=== PATIENT | male | born 1945 | race Caucasian/White ===

== ENCOUNTER 2024-05-16 19:47 | Emergency (ER) | payer MEDICARE, OTHER, SELFPAY ==
--- NOTE | ~2024-05-16 | CT_ITS ---
EXAMINATION: CT ANGIOGRAM CHEST CLINICAL INFORMATION: Shortness of breath. COMPARISON: None available. TECHNIQUE: Multiple axial images were obtained through the chest after the administration of 65 mL of Omnipaque 350 intravenous contrast. Extensive vascular post-processing including two-dimensional and three-dimensional reformatted images were created and reviewed on an independent workstation. This CT examination was performed using dose optimization techniques as appropriate, variously including the following: *Automated exposure control *Adjustment of mA and/or kV according to patient size (this includes techniques or standardized protocols for targeted exams where dose is matched to indication/reason for exam; i.e. extremities or head) *Use of iterative reconstruction technique DLP: 434 mGy-cm FINDINGS: QUALITY OF STUDY/CONTRAST BOLUS: Satisfactory. PULMONARY ARTERIES: There are filling defects within multiple right lower lobe pulmonary artery branches and one right upper lobe pulmonary artery branch. THORACIC AORTA: No aneurysm. LUNG: Bilateral lower lung field scarring. There is no evidence for active infiltrate. PLEURA: No pleural effusion or pneumothorax. MEDIASTINUM: Normal heart size. No pericardial effusion. No hilar or mediastinal lymphadenopathy. No evidence of septal bowing or right heart strain. CORONARY ARTERY CALCIFICATION: Mild. CHEST WALL/AXILLA: No axillary or internal mammary lymphadenopathy. OSSEOUS STRUCTURES: No acute or suspicious osseous abnormality. UPPER ABDOMEN: Unremarkable. No reflux of contrast into the hepatic veins to suggest elevated right heart pressures. CT/CT angio chest PE protocol IMPRESSION: 1. Small volume right sided pulmonary emboli. 2. No evidence for right heart strain. 3. No evidence for active infiltrate. VTE: positive. Fleischner guidelines were followed. Electronically signed by: Sid Hutchins MD 05/16/2024 11:19 PM EDT
--- NOTE | 2024-05-16 19:53 | ED_ITS ---
HPI - SOB/Dyspnea General Chief Complaint: Dyspnea Stated Complaint: SOB Time Seen by Provider: 05/16/24 20:17 Source: patient and family ( and daughter Montserrat who is an service technician copier here at [facility] [place]) Mode of arrival: ambulatory Limitations: no limitations History of Present Illness ED Provider: Dr. Isidro Almanzar HPI Narrative: 78-year-old male with a history of heart murmur, hypertension, hyperlipidemia, renal cell carcinoma diagnosed 03/04/2024 status post cryoablation 04/27/2024 and 05/03/2024 who presents emergency department for evaluation of dyspnea on exertion and shortness of breath. The patient states that her proximally 3 weeks prior he had flu-like symptoms what he describes as low-grade fevers, fatigue and diarrhea. He states that these symptoms have resolved but he was feeling fatigued, having dyspnea on exertion and feeling short of breath. Today, he was at a birthday green party for his 6-year-old granddaughter the patient's daughter who was a nurse practitioner is observing the patient while he was sitting and thought that he looked dyspneic she counted his respirations were 22 breaths per minute. Given his diagnosis of renal cell cancer, his daughter was concerned that the patient may have had a pulmonary embolism and strongly advised her father to come to the emergency department for evaluation. According to the patient's daughter, Montserrat, the patient was noted to have a decreased GFR by his PCP. His PCP got an outpatient ultrasound which revealed a 3.2 cm mass in his kidney. He then had MRI of the which was suspicious for renal cell carcinoma. Related Data Previous Rx's ?Medication ?Instructions ?Recorded apixaban 5 mg (74 tabs) tablets in 5 mg PO BID #74 ea 05/17/24 a dose pack (Eliquis DVT-PE Treat 30D Start) Allergies Allergy/AdvReac Type Severity Reaction Status Date / Time allopurinol Allergy Unknown Verified 05/16/24 19:58 Review of Systems 2 Review of Systems: Yes all other systems are reviewed and are negative [facility] Past Medical History [facility] Narrative: Social history: The patient denies tobacco use. He rarely drinks alcohol. Social History Social History Smoked in Last 30 Days: No Use of substances other than those prescribed or required for medical reasons: No Advance Directives: No Advance Directives Information Provided: No Physical Exam 2 Vital Signs: Vital Signs: Last Vital Signs Temp 97.5 F 05/16/24 22:47 Pulse 65 05/16/24 22:47 Resp 18 05/16/24 22:47 BP 141/57 H 05/16/24 22:47 Pulse Ox 94 05/16/24 22:47 O2 Del Method Room Air 05/16/24 22:47 BMI result Body Mass Index 32.8 Vital signs revealed an elevated blood pressure of 137/53 otherwise Exam: General: Awake, alert in no distress Head: Normocephalic, atraumatic EENT: PERRL, Lids normal, sclera normal, conjunctiva normal, nose normal , ears normal, throat without erythema or exudates Neck: Supple, no adenopathy Lung: breath sounds symmetric, no wheezing, rales or rhonchi Chest: symmetric movement, nontender Heart: Irregular irregular rate and rhythm, normal S1, S2 2/6 systolic murmurs left lower sternal border Abdomen: soft, non-tender, nondistended, normal bowel sounds Back: no vertebral tenderness, no CVAT Extremities: no deformities, moves all extremities symmetrically Neuro: Awake, alert, oriented, normal speech, cranial nerves intact, moves all extremities symmetrically Psych: Pleasant, cooperative Course Course Course Narrative: This is a Rapid Medical Exam performed in triage by Tegan Ojeda PA-C. Full HPI, ROS and PE to be performed by primary ED provider. 78 yo M w/PMHx renal CA, renal embolization 3 wks ago & cryo-ablation, presenting to the ED c/o low grade fever, SOB on exertion x few weeks. denies CP, LE swelling. denies taking AC. Received Flu & COVID shots last week PE: talking in complete sentences, ambulating w/steady gait. no pedal edema Plan: EKG, Labs, CXR, Viral testing Medications Administered Discontinued Medications Generic Name Dose Route Start Last Admin Trade Name Freq PRN Reason Stop Dose Admin Sodium Chloride 1,000 mls @ 999 mls/hr 05/16/24 20:51 05/16/24 22:04 Ns IV 05/16/24 21:51 Infused .Q1H1M STA Infusion Iohexol 100 ml 05/16/24 21:16 05/16/24 21:16 Iohexol 350 Mg/Ml 100 Ml Infus..Btl IV 05/16/24 21:17 65 ml ONCE ONE Administration Medical Decision Making Medical Decision Making [facility] Narrative: 78-year-old male with a history of heart murmur, hypertension, hyperlipidemia, renal cell carcinoma diagnosed 03/04/2024 status post cryoablation 04/27/2024 and 05/03/2024 who presents emergency department for evaluation of dyspnea on exertion and shortness of breath. The patient states he had a flu-like illness for proximally 3 weeks which recently improved however he was having dyspnea on exertion shortness of breath. The patient's daughter who was a nurse practitioner noted that the patient was had an elevated respiratory rate of 22 therefore the patient came to the emergency department for evaluation. Vital signs did reveal elevated blood pressure. Physical examination did reveal an irregular irregular heart rate. Twelve EKG did reveal new onset atrial fibrillation. Differential diagnosis: ?Includes but is not limited to myocardial infarction, myocardial ischemia, arrhythmia, pulmonary embolism, thyroid disease, electrolyte abnormalities, anemia Following evaluation was ordered: CBC, CMP, liver panel, BNP, TSH with reflex T4, PT/INR, PTT, troponin, magnesium, COVID-19, influenza, RSV, chest x-ray two view, CT pulmonary angiogram PE protocol, 12 EKG Patient was initially treated with the following: Normal saline IV x1 L Course: Admission/Observation Consideration of admission/observation: Escalation of care including admission/observation considered Lab Data [facility] Lab Attestation statement: I reviewed the patient's lab results. My independent interpretation patient's laboratory evaluation is as follows: Normocytic anemia with an H&H of 12.2 and 35.5. WBC was normal 7700. BUN is elevated 31 with a elevated creatinine of 1.91 with a GFR of 34. Alk-phos elevated 161. COVID-19, RSV and influenza were negative. High sensitive troponin I was detectable at 6.0 but not elevated repeat due at 23:10 hours 05/16/24 20:10 05/16/24 20:10 Labs: Lab Results 05/16/24 05/16/24 Range/Units 20:10 23:06 WBC 7.7 (4.8-10.8) X10*3/uL RBC 3.96 L (4.60-5.80) X10*6/uL Hgb 12.2 L (14.0-18.0) g/dl Hct 35.5 L (42.0-52.0) % MCV 89.6 (80.0-98.0) fL MCH 30.8 (27.0-33.0) pg MCHC 34.4 (31.0-36.0) g/dl RDW 13.6 (11.0-16.0) % Plt Count 291 (160-400) X10*3/uL MPV 10.2 (9.4-12.4) fL Immature Gran % (Auto) 0.9 H (0.0-0.4) % Neut % (Auto) 49.7 (45-73) % Lymph % (Auto) 28.5 (20-40) % [place] % (Auto) 13.2 H (2-11) % Eos % (Auto) 6.9 H (0-4) % Baso % (Auto) 0.8 (0-2) % Lymph # (Auto) 2.2 (1.2-4.9) X10*3/uL [place] # (Auto) 1.0 (0.1-1.2) X10*3/uL Eos # (Auto) 0.5 H (0.0-0.4) X10*3/uL Baso # (Auto) 0.1 (0.0-0.2) X10*3/uL Abs Immat Gran (auto) 0.07 H (0.00-0.03) X10*3/uL Absolute Neuts (auto) 3.8 (2.0-8.3) x10*3/uL Absolute Nucleated RBC 0.000 (0.0-0.012) X10*3/uL Nucleated RBC % (auto) 0.0 (0.0-0.2) /100WBC PT 11.6 (11.1-13.3) SEC INR 1.0 (0.9-1.1) APTT 34.1 (26.0-36.8) SEC Sodium 145 (135-145) mmol/L Potassium 4.0 (3.3-5.1) mmol/L Chloride 113 H (96-108) mmol/L Carbon Dioxide 24 (22-29) mmol/L Anion Gap 12 (12-20) BUN 31 H (9-16) mg/dL Creatinine 1.91 H (0.5-1.4) mg/dL Estim Creat Clear Calc 39.0 Estimated GFR 34 Random Glucose 98 (60-115) mg/dL Calcium 9.4 (8.4-10.2) mg/dL Magnesium 2.2 (1.6-2.6) mg/dL Total Bilirubin 0.4 (0.0-1.0) mg/dL Direct Bilirubin 0.2 (0.0-0.5) mg/dL AST 17 (5-37) U/L ALT 13 (0-40) U/L Alkaline Phosphatase 161 H (39-117) U/L Troponin I High Sens 6.0 6.1 (<3.5-35.0) ng/L B-Natriuretic Peptide 69 (<100) pg/mL Total Protein 7.2 (6.5-8.0) g/dL Albumin 4.2 (3.5-5.0) g/dL TSH 2.47 (0.32-4.0) uIU/mL Influenza Type A (PCR) NEGATIVE (Negative) Influenza Type B (PCR) NEGATIVE (Negative) RSV RNA Qual (PCR) NEGATIVE (Negative) SARS-CoV-2 RNA (RT-PCR) NEGATIVE (Negative) Independent Interpretation I performed an independent interpretation of an: EKG Interpretation: Done at 20:10 hours is as follows: Atrial fibrillation with a rate of 78, prolonged QRS of 168 milliseconds, prolonged QTC of 485 milliseconds, right bundle-branch block, no ST segment elevation, no ST segment depression, T-wave abnormalities consistent with a right bundle-branch block, no old EKG for comparison Critical Care Time Critical Care Time Critical Care Time: Yes Total Critical Care Time: 45 Attestation: Critical Care: The patient was critically ill with a high probability of imminent or life threatening deterioration. I spent greater than 30 minutes of discontinuous time evaluating the patient,delivering critical care at the bedside, discussing and evaluating pertinent data with consultants. Critical care time does not include time spent performing separately billable procedures or teaching. Total time spent performing critical care was 45 minutes. Discharge Plan Discharge Clinical Impression: New onset atrial fibrillation Pulmonary emboli Qualifiers: Chronicity: acute Acute cor pulmonale presence: without acute cor pulmonale Patient Disposition: Home, Self-Care Instructions: A-fib (Atrial Fibrillation) (ED) Additional Instructions: Your EKG showed that you have atrial fibrillation with a controlled rate. This is contributing to your shortness of breath. The CT pulmonary angiogram pulmonary embolism protocol of your chest review multiple small blood clots in your lungs. Shortness of breath. The treatment for both of these conditions is to put you on a blood thinner called Eliquis Take Eliquis 5 mg pills, 2 pills every 12 hours for 1 week and then after 1 week take Eliquis 5 mg pills, 1 pill every 12 hours. You will need to be on Eliquis for at least 3-6 months or until your doctor tell you you can stop this medication. While your on Eliquis do not take any NSAIDs (ibuprofen, Motrin, Advil, Aleve, naproxen or aspirin). You can take Tylenol for pain or You to call your clinical writer on 05/18/2024 get an appointment as soon as possible to further evaluate you for your new onset atrial fibrillation and to get a repeat echocardiogram. Please return to the emergency department if your symptoms get worse or if you develop any symptoms that are concerning to you. Prescriptions: New Eliquis DVT-PE Treat 30D Start 5 mg (74 tabs) tablets,dose pack 5 mg PO BID Qty: 74 0RF Print Language: Polish
--- NOTE | 2024-05-16 19:54 | ECG_ITS ---
Test Reason : SOB Blood Pressure : / mmHG Vent. Rate : 078 BPM Atrial Rate : 000 BPM P-R Int : 000 ms QRS Dur : 166 ms QT Int : 426 ms P-R-T Axes : 000 -37 -05 degrees QTc Int : 485 ms Atrial fibrillation with a competing junctional pacemaker Left axis deviation Right bundle branch block Inferior infarct , age undetermined Abnormal ECG No previous ECGs available Referred By: Tegan Ojeda Electronically Signed By:JENNIFER HANSEN
[2024-05-16 19:55] VITALS: BP 137/53; PULSE 60; RESP 18; TEMP 36.5; O2SAT 94; BMI 32.8
[2024-05-16 20:15] LABS: MANUAL DIFF FLAG NO
[2024-05-16 20:17] LABS: Basophils Absolute Auto 0.1 X10*3/uL (0.0-0.2); Basophils Percent Auto 0.8 % (0-2); Eosinophils Absolute Auto 0.5 X10*3/uL (0.0-0.4); Eosinophils Percent Auto 6.9 % (0-4); Hematocrit 35.5 % (42.0-52.0); Hemoglobin 12.2 g/dl (14.0-18.0); Imm Gran Abs Auto 0.07 X10*3/uL (0.00-0.03); Imm Gran Pct Auto 0.9 % (0.0-0.4); Lymphocytes Absolute Auto 2.2 X10*3/uL (1.2-4.9); Lymphocytes Percent Auto 28.5 % (20-40); Mean Corpuscular HGB Conc 34.4 g/dl (31.0-36.0); Mean Corpuscular Hemoglobin 30.8 pg (27.0-33.0); Mean Corpuscular Volume 89.6 fL (80.0-98.0); Mean Platelet Volume 10.2 fL (9.4-12.4); Monocytes Percent Auto 13.2 % (2-11); Neutrophils Absolute Auto 3.8 x10*3/uL (2.0-8.3); Neutrophils Percent Auto 49.7 % (45-73); Platelet Count 291 X10*3/uL (160-400); Red Blood Count 3.96 X10*6/uL (4.60-5.80); Red Cell Distribution Width 13.6 % (11.0-16.0); White Blood Count 7.7 X10*3/uL (4.8-10.8)
[2024-05-16 20:23] LABS: Prothrombin Time 11.6 SEC (11.1-13.3)
[2024-05-16 20:33] LABS: Alanine Aminotransferase 13 U/L (0-40); Albumin Level 4.2 g/dL (3.5-5.0); Alkaline Phosphatase 161 U/L (39-117); Anion Gap 12 (12-20); Aspartate Amino Transferase 17 U/L (5-37); Bilirubin Direct 0.2 mg/dL (0.0-0.5); Bilirubin Total 0.4 mg/dL (0.0-1.0); Blood Urea Nitrogen 31 mg/dL (9-16); Calcium 9.4 mg/dL (8.4-10.2); Carbon Dioxide 24 mmol/L (22-29); Chloride 113 mmol/L (96-108); Estimated Glomerular Filt Rate 34; Glucose Random 98 mg/dL (60-115); Magnesium 2.2 mg/dL (1.6-2.6); Sodium 145 mmol/L (135-145); Total Protein 7.2 g/dL (6.5-8.0)
[2024-05-16 20:36] LABS: B Type Natriuretic Peptide 69 pg/mL (<100)
[2024-05-16 20:54] LABS: Influenza A PCR NEGATIVE (Negative); Influenza B PCR NEGATIVE (Negative); Resp Syncy Virus RNA Qual PCR NEGATIVE (Negative); SARS COV2 PCR INHOUSE NEGATIVE (Negative)
[2024-05-16] MEDS: 0.9 % Sodium Chloride 1,000 ML 999 ML IV (21:03)
[2024-05-16] MEDS: iohexoL 350 MG/ML 100 ML INFUS..BTL IV (21:16)
[2024-05-16 21:28] LABS: Partial Thromboplastin Time 34.1 SEC (26.0-36.8)
[2024-05-16 21:43] LABS: TSH reflex Free T4 2.47 uIU/mL (0.32-4.0)
[2024-05-16 22:47] VITALS: BP 141/57; PULSE 65; RESP 18; TEMP 36.4; O2SAT 94
[2024-05-16 23:30] LABS: Troponin-I High Sensitivity 6.1 ng/L (<3.5-35.0)
[2024-05-17] MEDS: Apixaban 5 MG TABLET 10 MG PO (00:16)
[2024-05-17 00:20] VITALS: BP 129/44; PULSE 77; RESP 19; TEMP 36.5; O2SAT 95
[2024-05-17 00:27] VITALS: BP 129/44; PULSE 77; RESP 19; TEMP 36.5; O2SAT 95
== END 2024-05-17 00:28 | disposition home or self-care (01) ==
PROVIDERS: Physician Assistant; Emergency Provider Emergency Medicine Emergency Medical Services; PCP Internal Medicine
DX: I48.91 Unspecified atrial fibrillation (principal); I26.99 Other pulmonary embolism without acute cor pulmonale; R06.02 Shortness of breath; I45.10 Unspecified right bundle-branch block; R50.9 Fever, unspecified; R53.83 Other fatigue; I10 Essential (primary) hypertension; Z03.818 Encounter for observation for suspected exposure to other biological agents ruled out; Z79.899 Other long term (current) drug therapy
CPT/HCPCS: 0241U; 36415; 71275; 80048; 80076; 83735; 83880; 84443; 84484; 85025; 85610; 85730; 93005; 96360; 99284; 99285; Q9967